=== PATIENT | female | born 2000 | race American Indian/Alaskan Native ===

== ENCOUNTER 2020-02-16 21:28 | Emergency (ER) | payer MEDICAID ==
[2020-02-16 23:08] VITALS: BP 90/61
[2020-02-17 00:12] LABS: Basophils % (Auto) 0.3 % (0.0-1.8); Eosinophils % (Auto) 0.2 % (0.0-4.3); Hematocrit 32.2 % (30.3-42.9); Hemoglobin 11.2 gm/dl (10.1-14.3); Lymphocytes # (Auto) 0.8 K/mm3 (1.2-5.4); Lymphocytes % (Auto) 8.6 % (13.4-35.0); Mean Corpuscular HGB Conc 35 % (30-34); Mean Corpuscular Volume 86 fl (79-97); Monocytes # (Auto) 0.6 K/mm3 (0.0-0.8); Monocytes % (Auto) 6.7 % (0.0-7.3); Platelet Count 286 K/mm3 (140-440); Red Blood Count 3.75 M/mm3 (3.65-5.03); Red Cell Distribution Width 13.6 % (13.2-15.2)
[2020-02-17 00:22] LABS: Albumin 3.9 g/dL (3.9-5); Blood Urea Nitrogen 12 mg/dL (7-17); Calcium 8.8 mg/dL (8.4-10.2); Hemolysis Index 1
[2020-02-17 00:23] LABS: Alanine Aminotransferase < 5 units/L (7-56); BUN/Creatinine Ratio 20
[2020-02-17] MEDS ORDERED: SODIUM CHLORIDE 0.9% 1000 ML 1,000 ML IV ONE (02:06)
--- NOTE | 2020-02-17 02:19 | Emergency Department Report ---
ED Abdominal Pain HPI - General Chief Complaint: Abdominal Pain Stated Complaint: STOMACH PAIN Time Seen by Provider: 02/17/20 02:05 Source: patient Mode of arrival: Ambulatory Limitations: No Limitations - History of Present Illness Initial Comments: 19-year-old -[place] female presents to the emergency room for diffuse abdominal pain x1 month. Patient states that the pain is constant at a 9. She reports that it is crampy and nothing makes it better nothing makes it worse. Patient states she has been taken Tylenol and ibuprofen with no resolution. Patient's last menstrual period was 02/09/1930. Patient reports a past medical history of seizures. She has no known drug allergies. Denies any fever or chills. Does admit to nausea but no vomiting. MD Complaint: abdominal pain Onset/Timin -: month(s) Location: diffuse Severity scale (0 -10): 9 Quality: cramping Consistency: constant Improves With: nothing Worsens With: nothing - Related Data LMP Date: 02/10/20 Previous Rx's Medication Instructions Recorded Last Taken Type Amoxicillin [Trimox CAP] 500 mg PO Q8H 7 Days #21 capsule 02/17/20 Unknown Rx Polyethylene Glycol 3350 [Miralax] 17 gm PO BID PRN #238 gram 02/17/20 Unknown Rx Allergies Allergy/AdvReac Type Severity Reaction Status Date / Time No Known Allergies Allergy Unverified 02/16/20 23:14 ED Review of Systems ROS: Stated complaint: STOMACH PAIN Other details as noted in HPI Comment: All other systems reviewed and negative Gastrointestinal: abdominal pain, nausea. denies: vomiting, diarrhea, constipation ED Past Medical Hx - Past Medical History Previous Medical History?: Yes Hx Seizures: Yes - Surgical History Past Surgical History?: No - Social History Smoking Status: Never Smoker Substance Use Type: Marijuana - Medications Home Medications: Home Medications Medication Instructions Recorded Confirmed Last Taken Type Amoxicillin [Trimox CAP] 500 mg PO Q8H 7 Days #21 capsule 02/17/20 Unknown Rx Polyethylene Glycol 3350 [Miralax] 17 gm PO BID PRN #238 gram 02/17/20 Unknown Rx ED Physical Exam - General Limitations: No Limitations General appearance: alert, in distress - Head Head exam: Present: atraumatic, normocephalic - Eye Eye exam: Present: normal appearance - ENT ENT exam: Present: mucous membranes moist - Cardiovascular Cardiovascular Exam: Present: bradycardia - GI/Abdominal GI/Abdominal exam: Present: soft, tenderness, guarding. Absent: distended - Extremities Exam Extremities exam: Present: normal inspection, full ROM - Back Exam Back exam: Present: normal inspection, full ROM - Neurological Exam Neurological exam: Present: alert, oriented X3, normal gait - Psychiatric Psychiatric exam: Present: normal affect, normal mood - Skin Skin exam: Present: warm, dry, intact, normal color. Absent: rash ED Course Vital Signs 02/16/20 22:43 Temperature 99.8 F H Pulse Rate 133 H Respiratory 20 Rate Blood Pressure 90/61 O2 Sat by Pulse 99 Oximetry ED Medical Decision Making - Lab Data Result diagrams: 02/16/20 23:28 02/16/20 23:28 - Radiology Data Radiology results: report reviewed Patient: MATEUS LUNA MR#: [id number] : 2000 Acct:[id number] Age/Sex: 19 / F ADM Date: 02/16/20 Loc: ED Attending Dr: Ordering Physician: EVELIN CHIU Date of Service: 02/17/20 Procedure(s): CT abdomen pelvis w con Accession Number(s): [id number] cc: EVELIN CHIU CT ABDOMEN AND PELVIS WITH IV CONTRAST INDICATION: Generalized abdominal pain TECHNIQUE: Following the administration of intravenous contrast, multiple axial CT images of the abdomen and pelvis were acquired. Sagittal and coronal reformats were obtained. All CT performed at this facility utilize dose reduction techniques including automated exposure control, iterative reconstruction and weight based dosing when appropriate to reduce patient radiation dose to as low as reasonably achievable. COMPARISON: None FINDINGS: Limited imaging of the bilateral lung bases demonstrates no evidence of acute abnormality. Abdomen: The liver, gallbladder, spleen, pancreas, bilateral adrenal glands and bilateral kidneys show no evidence of acute abnormality. There is no evidence of bowel obstruction. There is a significant amount of retained stool noted throughout the colon. The appendix is not definitely identified, but no pericecal inflammatory changes are seen. Pelvis: The uterus and urinary bladder appear within normal limits. There is no large amount of free pelvic fluid. Bones and Soft Tissues: Evaluation of bony structures demonstrates no evidence of acute bony abnormality. Evaluation of soft tissue structures demonstrates no evidence of acute soft tissue abnormality. IMPRESSION: 1. No evidence of acute inflammatory or obstructive process within the abdomen or pelvis. 2. Moderate amount of retained stool throughout the colon suggests constipation. Signer Name: Chelsea Pike MD Signed: 02/17/2020 3:12 AM Workstation Name: [id number] Transcribed By: EB Dictated By: Chelsea Pike MD Electronically Authenticated By: Chelsea Pike MD Signed Date/Time: 02/17/20311 DD/ 6 TD/TT: - Medical Decision Making 19-year-old -[place] female presents to the emergency room for diffuse abdominal pain x1 month. Patient states that the pain is constant at a 9. She reports that it is crampy and nothing makes it better nothing makes it worse. Patient states she has been taken Tylenol and ibuprofen with no resolution. Patient's last menstrual period was 02/09/1930. Patient reports a past medical h istory of seizures. She has no known drug allergies. Denies any fever or chills. Does admit to nausea but no vomiting. CT of abdomen shows patient is retained fecal matter throughout. Patient will be discharged home with instructions to take MiraLAX 17 g p.o. twice daily until she starts moving her bowels and then daily only as needed. Patient needs to increase her water intake include a high-fiber diet. Critical care attestation.: If time is entered above; I have spent that time in minutes in the direct care of this critically ill patient, excluding procedure time. ED Disposition Clinical Impression: Abdominal pain Qualifiers: Abdominal location: generalized Qualified Code(s): R10.84 - Generalized abdominal pain Constipation Qualifiers: Constipation type: other constipation type Qualified Code(s): K59.09 - Other constipation UTI (urinary tract infection) Qualifiers: Urinary tract infection type: site unspecified Hematuria presence: with hematuria Qualified Code(s): N39.0 - Urinary tract infection, site not specified; R31.9 - Hematuria, unspecified Disposition: DC-01 TO HOME OR SELFCARE Is pt being admited?: No Does the pt Need Aspirin: No Condition: Stable Instructions: Abdominal Pain (ED) Additional Instructions: CAT scan shows that you are constipated throughout her bowel. It is very important for you to take MiraLAX twice a day as prescribed until you start having a loose bowel movement. Then take it daily until your bowels are regular. Then take it as needed. You need to increase your fiber intake which includes vegetables and fruits. Stay away from saturated fats. Increase your water intake as she should be drinking at least 2 to 3 L daily. Apples oranges are really good for moving your bowels. Prescriptions: Polyethylene Glycol 3350 [Miralax] 17 gm PO BID PRN #238 gram PRN Reason: Constipation Amoxicillin [Trimox CAP] 500 mg PO Q8H 7 Days #21 capsule Referrals: PRIMARY CARE, [Primary Care Provider] - 3-5 Days [facility] [Provider Group] - 3-5 Days Forms: Work/School Release Form(ED)
--- NOTE | 2020-02-17 03:17 | Cat Scan Report ---
CT ABDOMEN AND PELVIS WITH IV CONTRAST INDICATION: Generalized abdominal pain TECHNIQUE: Following the administration of intravenous contrast, multiple axial CT images of the abdo men and pelvis were acquired. Sagittal and coronal reformats were obtained. All CT performed at this facility utilize dose reduction techniques including automated exposure control, iterative reconstru ction and weight based dosing when appropriate to reduce patient radiation dose to as low as reasonab ly achievable. COMPARISON: None FINDINGS: Limited imaging of the bilateral lung bases demonstrates no evidence of acute abnormality. Abdomen: The liver, gallbladder, spleen, pancreas, bilateral adrenal glands and bilateral kidneys eliceo w no evidence of acute abnormality. There is no evidence of bowel obstruction. There is a significant amount of retained stool noted throughout the colon. The appendix is not definitely identified, but no pericecal inflammatory changes are seen. Pelvis: The uterus and urinary bladder appear within normal limits. There is no large amount of free pelvic fluid. Bones and Soft Tissues: Evaluation of bony structures demonstrates no evidence of acute bony abnormal ity. Evaluation of soft tissue structures demonstrates no evidence of acute soft tissue abnormality. IMPRESSION: 1. No evidence of acute inflammatory or obstructive process within the abdomen or pelvis. 2. Moderate amount of retained stool throughout the colon suggests constipation. Signer Name: Chelsea Pike MD Signed: 02/17/2020 3:12 AM Workstation Name: [id number]
[2020-02-17 04:29] LABS: Bacteria,Urine 1+ /HPF (Negative); Bilirubin,Urine NEG (Negative); Blood,Urine SM (Negative); Color,Urine Yellow (Yellow); Mucus,Urine FEW /HPF; Protein,Urine <15 mg/dL mg/dL (Negative); Urobilinogen,Urine < 2.0 mg/dL (<2.0)
== END 2020-02-17 05:26 | disposition home or self-care (01) ==
LOC: ED 21:28
DX: N39.0 Urinary tract infection, site not specified (principal); K59.09 Other constipation
CPT/HCPCS: 36415; 74177; 80053; 81001; 83690; 84703; 85025; 87086; 96360; 99284; J7030; Q9967